=== PATIENT | female | born 1940 | race Caucasian/White ===

== ENCOUNTER → 2016-08-23 | Outpatient (CLI) | payer MEDICARE ==
--- NOTE | 2016-08-23 11:37 | REP ---
LUMBAR SPINE, FIVE VIEWS: HISTORY: Back pain. There is no acute fracture or subluxation. There is an old compression fracture of the L1 vertebral body with minimal height loss. The lumbar intervertebral discs are decreased in height consistent with disc degeneration. Osteophytes are present on L1 through L5. There is narrowing of the lumbar facet joints. There is scoliosis convex to the left. IMPRESSION: Degenerative change as described above. Signed by Duke Harris MD 08/23/2016 11:45 A
== END ==
LOC: M WUC 10:37
PROVIDERS: ATTEND Physician Assistant
DX: M51.36 Other intervertebral disc degeneration, lumbar region (principal); M54.5 Low back pain

== ENCOUNTER → 2020-08-02 | Outpatient (CLI) | payer MEDICARE ==
--- NOTE | 2020-08-02 10:46 | REP ---
INDICATION: PAIN. COMPARISON: Comparison left tib fib radiographs July 06, 2009.. TECHNIQUE: Standing AP view of both knees is acquired. Standing lateral view of the left knee and sunrise view of the left knee are also acquired. FINDINGS: There is advanced 3 compartment osteoarthritis of the left knee with medial joint space narrowing and patellofemoral joint space narrowing. There is medial compartment sclerosis and medial and patellofemoral compartment osteophyte formation is seen. Some lateral spurring is seen. There is diffuse osteopenia. The osteoarthritic changes are more pronounced than on the comparison the radiographs from 2009. IMPRESSION: Advanced osteoarthritis of the left knee. Standing view of the right knee demonstrates a right knee medial compartment hemiarthroplasty. <Electronically signed by Mann tSeel > 08/02/20 [id number]
== END ==
LOC: M SOG 10:13
PROVIDERS: ATTEND Orthopaedic Surgery Adult Reconstructive Orthopaedic Surgery
DX: M17.12 Unilateral primary osteoarthritis, left knee (principal)

== ENCOUNTER → 2020-10-02 | Outpatient (CLI) | payer MEDICARE | LOC: M PT 13:56 | PROVIDERS: ATTEND Orthopaedic Surgery Adult Reconstructive Orthopaedic Surgery | DX: M17.12 Unilateral primary osteoarthritis, left knee (principal) ==

== ENCOUNTER → 2020-10-17 | Outpatient (CLI) | payer MEDICARE ==
[~2020-10-17] MED LIST: ATOR40TA75 PO; D31000TA2 PO; ECOT81TA5 PO; LEVO25TA5 PO; MELO7.5T35; PANT40TA29 PO; POTA1TAB23 PO; TRIA37.53 PO
--- NOTE | 2020-10-17 12:18 | REP ---
INDICATION: LT KNEE OA. COMPARISON: Comparison radiographs of the left knee are from August 02, 2020. TECHNIQUE: Tera protocol. 3 mm axial images re-formatted. Coronal and sagittal MPR images are included at the hip, knee, and ankle. FINDINGS: Images at the level of the hip demonstrate a small bone island in the femoral head. There is tendon insertion site spurring on the greater trochanter. There is minimal marginal spur formation of the inferior aspect of the femoral head. Joint space is preserved. No bony destructive lesion is seen. At the knee, there is advanced medial compartment osteoarthritis with narrowing of the joint space, articular cartilage remodeling, and spur formation. There is well established spurring in the lateral compartment and chondrocalcinosis is noted in the lateral compartment. There is patellofemoral narrowing and spur formation as well. No significant joint effusion is seen. There is a 1 cm triangular ossific density in the extra-articular soft tissues beneath the lower pole of the patella. There is some vascular calcification. At the ankle, there is minimal tibiotalar spurring. Plantar calcaneal spurring is noted. There is mild midfoot intertarsal joint spurring. IMPRESSION: Osteoarthritic changes as above. <Electronically signed by Mann Steel > 10/17/20 [id number]
== END ==
LOC: M RAD 10:30
PROVIDERS: ATTEND Orthopaedic Surgery Adult Reconstructive Orthopaedic Surgery
DX: M17.12 Unilateral primary osteoarthritis, left knee (principal)

== ENCOUNTER → 2020-10-26 | Outpatient (CLI) | payer MEDICARE | LOC: M LABSMTC 09:10 | PROVIDERS: ATTEND Anesthesiology | DX: Z01.812 Encounter for preprocedural laboratory examination (principal); Z20.822 Contact with and (suspected) exposure to COVID-19 ==

== ENCOUNTER 2020-10-31 06:11 | Observation (INO) | payer MEDICARE ==
[~2020-10-31] VITALS: Ht 162.6 cm; Wt 68.0 kg
[~2020-10-31 06:11] MED LIST changes: +ACETAMINOPHEN 500 MG TAB PO ONE; +LR 1,000 ML IV ONE; +NAPROXEN 250 MG TAB PO ONE; +NS 1,000 ML IV ONE; +PREGABALIN 25 MG CAP (LYRICA) PO ONE; +ROPIVA 125MG/EPINEPH 0.25MG/CLONID 40MCG/KETOR 15MG IN NS 50ML SYRINGE PA ONE; +dexameTHASONE 4 MG/ML 1ML VIAL (J1100 PER 1MG) IV ONE
[2020-10-31] MEDS ORDERED: propofoL 500 MG/50 ML VIAL As Ordered ONE (07:04)
[2020-10-31] MEDS ORDERED: fentaNYL 100 MCG/2 ML INJECTION (J3010) As Ordered ONE (07:04)
[2020-10-31] MEDS ORDERED: ONDANSETRON 4MG/2ML VIAL As Ordered ONE (07:05)
[2020-10-31] MEDS ORDERED: MIDAZOLAM INJ 2MG/2ML VIAL (J2250 PER 1MG) As Ordered ONE (07:05)
[2020-10-31] MEDS ORDERED: TRANEXAMIC ACID 100 MG/ML 10ML VIAL As Ordered ONE (07:14)
[2020-10-31 08:03] LABS: HEMOGLOBIN 14.6 g/dl (12.0-15.5); MEAN CORPUSCULAR HEMOGLOBIN 30.1 pg (27.0-33.0); MEAN CORPUSCULAR VOLUME 88.7 fl (80.0-96.0); PLATELET COUNT, AUTOMATED 268 10^3/uL (150-450); RED BLOOD COUNT 4.85 10^6/uL (4.00-5.40); WHITE BLOOD COUNT 6.1 10^3/uL (4.0-10.0)
[2020-10-31] MEDS: ceFAZolin SOD 1 GM in D5W MINI-BAG PLUS 50 ML IV SCH ×3 (08:09→17:12)
[2020-10-31] MEDS ORDERED: LIDOCAINE 2% 100MG/5ML SDV (FOR ANES.) As Ordered ONE (08:11)
[2020-10-31] MEDS ORDERED: ePHEDrine SULFATE 25 MG/5 ML(5MG/ML) SYRINGE As Ordered ONE ×2 (08:16→08:31)
[2020-10-31 08:21] LABS: ALBUMIN 3.3 GM/DL (3.2-5.2); ALT/SGPT 49 U/L (12-78); BILIRUBIN,TOTAL 0.6 MG/DL (0.2-1.0); BLOOD UREA NITROGEN 24 MG/DL (7-18); CALCIUM LEVEL 9.5 MG/DL (8.8-10.2); CARBON DIOXIDE LEVEL 30 MEQ/L (21-32); CHLORIDE LEVEL 104 MEQ/L (98-107); CREATININE FOR GFR 0.84 MG/DL (0.55-1.30); GLOMERULAR FILTRATION RATE > 60.0 (>39); GLUCOSE, FASTING 128 MG/DL (70-100); SODIUM LEVEL 140 MEQ/L (136-145); TOTAL PROTEIN 7.2 GM/DL (6.4-8.2)
[2020-10-31] MEDS: FERROUS SULFATE 325MG TAB PO SCH (09:00)
[2020-10-31] MEDS: ASCORBIC ACID 500 MG TAB PO SCH (09:00)
[2020-10-31] MEDS: PANTOPRAZOLE 40MG TAB (PROTONIX) PO SCH (09:00)
[2020-10-31] MEDS: DOCUSATE SODIUM 100MG CAPSULE PO SCH ×2 (09:00→20:51)
[2020-10-31] MEDS: ASPIRIN 81MG ENTERIC TABLET PO SCH ×2 (09:00→20:51)
[2020-10-31] MEDS ORDERED: METOCLOPRAMIDE INJ 10MG/2ML VIAL (J2765 PER 1) IV PRN (10:50)
[2020-10-31] MEDS ORDERED: fentaNYL 100 MCG/2 ML INJECTION (J3010) IV PRN (10:50)
[2020-10-31] MEDS ORDERED: LR 1,000 ML IV SCH (10:50)
[2020-10-31] MEDS ORDERED: ONDANSETRON 4MG/2ML VIAL IV PRN ×2 (10:50→10:55)
[2020-10-31] MEDS ORDERED: PERCOCET 5MG/325MG TAB PO PRN (10:50)
--- NOTE | 2020-10-31 10:50 | ROOPDOC ---
[facility] Report Of Operation Report of Operation DATE OF PROCEDURE: 10/31/20 PREPROCEDURE DIAGNOSES: Left knee osteoarthritis POSTPROCEDURE DIAGNOSES: Left knee osteoarthritis; possible inflammatory arthropathy PROCEDURE PERFORMED: Left Tera total knee SURGEON: Jenn Vital MD PICTURE BOOKER: Bernarda Solo PA-C ANESTHESIA: Spinal. ESTIMATED BLOOD LOSS: Approximately less than 100 mL. COMPLICATIONS: No known complications. REMARKS: Patient was seen in the preoperative area and her left knee was marked. Consent was obtained for the Tera left total knee arthroplasty as well. Risks and benefits were discussed as previously described. Components: TeraView triathlon system press-fit 32 mm patella Size 3 tibia and size 3 femur PS 14 mm PS polyethylene FINDINGS: Tricompartmental osteoarthritis left knee; degenerative soft tissues as well with friability SPECIMENS REMOVED: None PROCEDURE NOTE: The patient was seen in the preoperative area and her status was updated. [facility] [employer] plan was reviewed prior to surgery and adjusted appropriately. DESCRIPTION OF PROCEDURE: Patient was taken to the operating room and after a checklist was performed, the underwent a spinal anesthetic. The patient was then placed supine. The operative leg was then cleansed with chlorhexidine wash followed by 2 times alcohol swab followed by hydrogen peroxide wash. 2 chlorhe xidine prep once were then used to clean the leg. The operative extremity was then prepped and draped in the standard sterile fashion. This was done utilizing the Tera leg hawley device. A surgical pause was then carried out followed by the surgical safety checklist. 2 stab hole incisions were made approximately 4 fingerbreadths below the tibial tubercle of the left knee for the tibial array pins which were placed. The midline incision over the knee followed by the medial arthrotomy was then carried out. Cautery was used to control bleeders. The soft tissue and fat pad were removed using electrocautery. The femoral array pins were then placed in the medial femoral condyle. The femoral tracker was then placed followed by the tibial tracker. The arrays were then placed over the array pins. The hip center was checked followed by the medial and lateral condyles of the ankle. The registration of the femur and tibia then occurred using the arrays in the Tera system. Osteophytes were removed at this point, as needed. The leg was then brought into extension and varus and valgus stresses were applied in extension and spoons were used for tensioning as well as a Beaver in flexion of approximately 95 degrees. Once the soft tissue adjustments were made to the Tera plan, the plan was carried out utilizing the robot. The 90 degree blade cuts were made first followed by the straight blade cuts. Once all the cuts were completed with the assistance of the Tera robot, the rongeur and osteotome were used to remove the bone segments. A lamina central office maintainer was used to help remove the medial lateral menisci remnants followed by a curved osteotome to remove any posterior osteophytes from the medial or lateral femoral condyles. A trial femur was placed and secured with a pin. The tibial component was then placed with a 11 mm polyinsert. This was brought into extension and found to have some slight laxity in flexion and extension. The decision was made to increase the polyethylene and as a result of the soft tissue laxity convert the femoral component to PS The the PS box cutting guide was applied and the lug holes were drilled as well as a sagittal saw and the osteotome blade were used to remove the box in the middle. The leg was then brought into extension and the patella was measured using the caliper. A freehand cut using towel clips was used to remove the patellar surface. This was then clamped and reamed appropriately for the press-fit components. A trial was placed and taken through range of motion and found to b e nice and stable. The tibia was then appropriately positioned with the correct amount of rotation lined up with the medial third of the tibial tubercle. This was pinned and the keel punch was completed followed by the four-point reaming for the press-fit component. The leg was brought out into extension and any bleeders were cauterized with electrocautery. The RE CK local anesthetic cocktail was instilled in the standard fashion. The wound was thoroughly irrigated with pulse lavage. The tibia was then press-fit in position using the mallet and impactors. The femur was then flexed high and positioned aligning the lug holes. This component was impacted then brought out into 90 degrees and impacted further to avoid anywhere to the metal components. The 11 mm polyethylene was increased to a 14 mm PS, which was inserted and then trialed, found appropriate and the final component was placed and impacted. The leg was brought into extension and the press-fit polyethylene patellar component was tightened and impacted utilizing the compression device The leg was taken through stable range of motion. It was thoroughly irrigated. Electrocautery was used to control any bleeders. A layered closure using #1 Vicryl followed by strata fix for the arthrotomy. #1 Vicryl to close down the subcutaneous tissue followed by running locking nylon suture full-thickness as a result of the patient's thin skin. Layered irrigation with saline and Betadine occurred. Steri-Strips were applied to the 2 sutured pin sites distally and this was followed by followed by the Mepilex dressing Patient tolerated the procedure well with no known complications. They were taken to the recovery room in stable condition. The patient will be admitted to the hospitalist service with plan for evaluation with physical therapy and possible discharge home tomorrow. Discharge Instructions Total Knee Arthroplasty 1. Pain: You may take oxycodone as prescribed for pain. Supplement with Naproxen and Tylenol as needed. Ice pack to operative hip as tolerated. 2. Wound care: Remove dressing on postop day 7. Call [phone] with any questions or concerns. Hygiene: The patient may shower. No tub baths. Check dressing seal prior to bathing. 3. Activity: WBAT left lower extremity. Front wheeled walker versus crutches for ambulation. Fall precautions. 4. Driving: No driving until cleared by your surgeon. Do not drive if taking n arcotic pain medications as these may make you drowsy. 5. DVT Prophylaxis: Continue taking aspirin 81 mg p.o. twice daily as prescribed for the prevention of blood clots. Ankle pumps every 1 hour while awake. SCARLETT hose at all times for 1 month after surgery. May remove for hygiene and wound care. 6. Placement: Plan is to discharge patient to home with home health including nursing and physical therapy. 7. Surgeon Follow-up: The patient is scheduled to be seen in Dr. Vital's office 2 weeks post op with xrays. 8. Primary care Follow-up: Please see your primary care provider in the next 2 to 5 weeks for general medical re-evaluation and medication review. 9. Labs: CBC without differential and BMP to be drawn on [postop day 3] with results to PCP and please fax to [phone]. 10. Please contact [facility] if you have any questions or concerns at [phone]. JENN VITAL MD Oct 31, 2020 10:50
[2020-10-31] MEDS: LR 1,000 ML IV SCH ×2 (10:55→20:55)
[2020-10-31] MEDS ORDERED: SENNA 8.6 MG TAB (SENOKOT) PO PRN (10:55)
[2020-10-31] MEDS ORDERED: oxyCODONE 5MG TAB PO PRN (10:55)
[2020-10-31] MEDS ORDERED: traMADol 50 MG TAB PO PRN (10:55)
--- NOTE | 2020-10-31 11:38 | REP ---
INDICATION: POST OP IN PACU COMPARISON: 08/02/2020. TECHNIQUE: AP and lateral. FINDINGS: Patient is status post total knee arthroplasty. Osseous structures are well-aligned. Postsurgical air is seen anteriorly in the soft tissues. IMPRESSION: Total knee arthroplasty appears to be in good position. <Electronically signed by Fabien Lechuga > 10/31/20 [id number]
--- NOTE | 2020-10-31 11:54 | HPEPDOC ---
General Date of Admission 10/31/20 Date of Service: Oct 31, 2020 Chief Complaint The patient is a 79-year-old female admitted with a reason for visit of Left Knee Osteoarthritis. Source: Patient History of Present Illness 79-year-old female with past medical history of hypertension, hyperlipidemia, Mnire's disease, advanced osteoarthritis of the left knee, was admitted for left total knee replacement. Am seeing the patient after surgery in the PACU. Patient complains of sharp throbbing pain at the surgical site of the left knee 3/10 in intensity no radiation. Patient denies any other complaints Home Medications Scheduled Aspirin (Ecotrin) 81 Mg Tablet.dr, 81 MG PO DAILY, (Reported) Atorvastatin Calcium (Atorvastatin Calcium) 40 Mg Tablet, 40 MG PO QHS, (Reported) Cholecalciferol (Vitamin D3) (Vitamin D3) 1,000 Unit Tablet, 1,000 UNITS PO DAILY, (Reported) Levothyroxine Sodium (Levothyroxine Sodium) 25 Mcg Tablet, 25 MCG PO DAILY, (Reported) Pantoprazole Sodium (Pantoprazole Sodium) 40 Mg Tablet.dr, 40 MG PO DAILY, (Reported) Potassium Chloride (Potassium Chloride) 10 Meq Tablet.er, 10 MEQ PO DAILY, (Reported) Triamterene/Hydrochlorothiazid (Triamterene-Hctz 37.5-25 mg Cp) 1 Each Capsule, 1 TAB PO DAILY, (Reported) Allergies Coded Allergies: No Known Allergies (Unverified , 10/31/20) Past Medical History Medical History Hypertension Mnire's disease, hyperlipidemia, osteoarthritis Surgical History Hysterectomy, right knee arthroscopy, left breast biopsy, bunionectomy. Family History Significant Family History: Heart disease, Hypertension Social History * Smoker: former Smoker (Quit 15 years ago) Alcohol: Denies Drugs: denies A-FIB/CHADSVASC A-FIB History Current/History of A-Fib/PAF?: No Review of Systems Constitutional: Denies: Chills, Fever, Night Sweats Eyes: Denies: Pain, Vision change ENT: Denies: Head Aches, Ear Pain, Dysphagia Skin: Denies: Rash, Lesions, Breakdown Pulmonary: Denies: Dyspnea, Cough Cardiovascular: Denies: Chest Pain, Palpitations, Orthopnea, Paroxysmal Noc. Dyspnea, Lt Headedness Gastrointestinal: Denies: Nausea, Vomiting, Abdominal Pain, Diarrhea Genitourinary: Denies: Dysuria, Frequency, Incontinence, Retention Hematologic: Denies: Bruising, Bleeding Excessively Musculoskeletal: Reports: Joint Pain (Left knee); Denies: Neck Pain, Back Pain, Muscle Pain, Spasms Physical Examination General Exam: Positive: Alert, Cooperative, No Acute Distress Eye Exam: Positive: PERRLA, Conjunctiva & lids normal, EOMI; Negative: Sclera icteric ENT Exam: Positive: Atraumatic, Mucous membr. moist/pink, Pharynx Normal Neck Exam: Positive: Supple; Negative: JVD, thyromegaly Chest Exam: Positive: Clear to auscultation, Normal air movement Heart Exam: Positive: Rate Normal, Regular Rhythm, Normal S1, Normal S2, Murmurs (Soft systolic murmur at the base of the heart); Negative: Rubs Abdomen Exam: Positive: Normal bowel sounds, Soft; Negative: Tenderness Extremity Exam: Negative: Clubbing, Cyanosis, Edema Skin Exam: Positive: Nl turgor and temperature; Negative: Breakdown, Lesion Psych Exam: Positive: Memory Intact, Oriented x 3 Vital Signs Vital Signs Date Time Temp Pulse Resp B/P (MAP) Pulse Ox O2 Delivery O2 Flow Rate FiO2 10/31/20 11:38 98.5 66 18 153/76 (101) 94 10/31/20 11:26 Room Air Laboratory Data Labs 24H Laboratory Tests 2 10/31/20 07:36: Nucleated Red Blood Cells % (auto) 0.0, Anion Gap 6L, Glomerular Filtration Rate > 60.0, Calcium Level 9.5, Total Bilirubin 0.6, Aspartate Amino Transf (AST/SGOT) 29, Alanine Aminotransferase (ALT/SGPT) 49, Alkaline Phosphatase 114, Total Protein 7.2, Albumin 3.3, Albumin/Globulin Ratio 0.8L CBC/BMP Laboratory Tests 10/31/20 07:36 Assessment/Plan 79-year-old female with past medical history of hypertension, hyperlipidemia, Mnire's disease, advanced osteoarthritis of the left knee, was admitted for left total knee replacement. Left knee osteoarthritis Status post left total knee replacement on 10/31/2020 Pain control as per Ortho DVT prophylaxis as per Ortho to continue aspirin 81 mg twice daily PT, OT Weightbearing as per Ortho Hypertension Blood pressure controlled at present We will hold diuretics for now Mnire's disease No issues at this time Patient tells me she takes the diuretics also for her Mnire's disease will resume tomorrow Hyperlipidemia Continue statin Plan / VTE VTE Prophylaxis Ordered?: Yes Windy Tiwari MD Oct 31, 2020 11:54
[2020-10-31] MEDS: ACETAMINOPHEN TAB 650MG DOSE (2X325MG) PO SCH ×2 (12:00→17:12)
[2020-10-31] MEDS: NAPROXEN 250 MG TAB PO SCH (12:00)
[2020-10-31 12:15] VITALS: BP 142/84
[2020-10-31 12:45] VITALS: BP 142/83
[2020-10-31 14:00] VITALS: BP 122/72
[2020-10-31 15:00] VITALS: BP 117/69
[2020-10-31] MEDS: oxyCODONE 5MG TAB PO PRN ×2 (15:58→21:11)
[2020-10-31 16:00] VITALS: BP 117/86
[2020-10-31 17:00] VITALS: BP 122/80
[2020-10-31] MEDS ORDERED: ATORVASTATIN 20 MG TAB PO SCH (21:00)
[2020-11-01] MEDS: ACETAMINOPHEN TAB 650MG DOSE (2X325MG) PO SCH ×2 (00:37→05:53)
[2020-11-01] MEDS: NAPROXEN 250 MG TAB PO SCH (00:37)
[2020-11-01] MEDS: ceFAZolin SOD 1 GM in D5W MINI-BAG PLUS 50 ML IV SCH ×2 (00:37→00:38)
[2020-11-01 02:00] VITALS: BP 114/59
[2020-11-01 06:00] VITALS: BP 109/51
[2020-11-01] MEDS ORDERED: LEVOTHYROXINE 25MCG TABLET (0.025MG) PO SCH (06:00)
[2020-11-01 06:10] LABS: HEMATOCRIT 36.1 % (36.0-47.0); MEAN CORPUSCULAR HEMOGLOBIN 29.7 pg (27.0-33.0); MEAN CORPUSCULAR HGB CONC 33.5 g/dl (32.0-36.5); MEAN CORPUSCULAR VOLUME 88.5 fl (80.0-96.0); PLATELET COUNT, AUTOMATED 260 10^3/uL (150-450); RED BLOOD COUNT 4.08 10^6/uL (4.00-5.40); WHITE BLOOD COUNT 12.5 10^3/uL (4.0-10.0)
[2020-11-01 06:19] LABS: HEMOGLOBIN 12.1 g/dl (12.0-15.5)
[2020-11-01 06:33] LABS: BLOOD UREA NITROGEN 22 MG/DL (7-18); CALCIUM LEVEL 8.8 MG/DL (8.8-10.2); CARBON DIOXIDE LEVEL 28 MEQ/L (21-32); CHLORIDE LEVEL 107 MEQ/L (98-107); CREATININE FOR GFR 0.83 MG/DL (0.55-1.30); GLOMERULAR FILTRATION RATE > 60.0 (>39); GLUCOSE, FASTING 149 MG/DL (70-100); POTASSIUM SERUM 3.4 MEQ/L (3.5-5.1); SODIUM LEVEL 143 MEQ/L (136-145)
[2020-11-01] MEDS ORDERED: POTASSIUM CHLORIDE 10MEQ SR TABLET PO ONE (08:00)
--- NOTE | 2020-11-01 08:08 | IPNPDOC ---
Text Note Date of Service The patient was seen on 11/01/20. NOTE Postop day 1 for left total knee arthroplasty Patient doing well. Denies any significant complaints or concerns. She has no pain at rest. She does have weightbearing pain which is normal. She denies any chest pain or shortness of breath. She states that she did not get a lot of sleep last night due to noises from the hospital, etc. She is hoping to get home today Bulky dressing was intact to left lower extremity. This was removed. No staining noted to the Mepilex dressing. This appeared to be intact with no loss of seal. Patient demonstrated that she could elevate her leg off the bed about 30 degrees or so. She was able to bend her knee about 35 degrees with no pain or discomfort. Grossly neurovascularly intact to left foot and ankle with a palpable posterior tibial pulse intact light sensation. Moving left foot and ankle well X-ray imaging in PACU that was ordered independently and reviewed by myself yesterday demonstrated that the prosthesis was in good position without any obvious signs of complication. Plan for DC home when cleared by hospitalist service and physical therapy, possibly today Discharge Instructions Total Knee Arthroplasty 1. Pain: You may take oxycodone as prescribed for pain. Supplement with Naproxen and Tylenol as needed. Ice pack to operative knee as tolerated. 2. Wound care: Remove dressing on postop day 7. Call [phone] with any questions or concerns. Hygiene: The patient may shower. No tub baths. Check óscar ssing seal prior to bathing. 3. Activity: WBAT left lower extremity. Front wheeled walker versus crutches for ambulation. Fall precautions. 4. Driving: No driving until cleared by your surgeon. Do not drive if taking narcotic pain medications as these may make you drowsy. 5. DVT Prophylaxis: Continue taking aspirin 81 mg p.o. twice daily as prescribed for the prevention of blood clots. Ankle pumps every 1 hour while awake. SCARLETT hose at all times for 1 month after surgery. May remove for hygiene and wound care. 6. Placement: Plan is to discharge patient to home with home health including nursing and physical therapy. 7. Surgeon Follow-up: The patient is scheduled to be seen in Dr. Vital's office 2 weeks post op with xrays. 8. Primary care Follow-up: Please see your primary care provider in the next 2 to 5 weeks for general medical re-evaluation and medication review. 9. Labs: CBC without differential to be drawn on postop day 3 with results to PCP and please fax to [phone]. 10. Please contact [facility] if you have any questions or concerns at [phone]. VS,Fishbone, I+O VS, Fishbone, I+O Laboratory Tests 11/01/20 05:51 Vital Signs Date Time Temp Pulse Resp B/P (MAP) Pulse Ox O2 Delivery O2 Flow Rate FiO2 11/01/20 06:00 98.7 52 17 109/51 (70) 95 Nasal Cannula 2.0 I&O- Last 24 Hours up to 6 AM 11/01/20 06:00 Intake Total 2710 ml Output Total 100 ml Balance 2610 ml JENN VITAL MD Nov 01, 2020 08:08
[2020-11-01] MEDS: oxyCODONE 5MG TAB PO PRN (08:44)
[2020-11-01] MEDS: FERROUS SULFATE 325MG TAB PO SCH (08:45)
[2020-11-01] MEDS: ASCORBIC ACID 500 MG TAB PO SCH (08:45)
[2020-11-01] MEDS: DOCUSATE SODIUM 100MG CAPSULE PO SCH (08:45)
[2020-11-01] MEDS: PANTOPRAZOLE 40MG TAB (PROTONIX) PO SCH (08:45)
[2020-11-01] MEDS: ASPIRIN 81MG ENTERIC TABLET PO SCH (08:45)
[2020-11-01 10:00] VITALS: BP 122/69
[2020-11-01] MEDS ORDERED: ECOT81TA5 PO (11:04)
[2020-11-01] MEDS ORDERED: ASCO50TA PO (11:04)
[2020-11-01] MEDS ORDERED: FERR1TAB8 PO (11:04)
[2020-11-01] MEDS ORDERED: DOCU100C16 PO (11:04)
[2020-11-01] MEDS ORDERED: OXYC-517 PO ×2 (11:04→11:07)
[2020-11-01] MEDS ORDERED: ACET1TAB55 PO (11:04)
--- NOTE | 2020-11-01 11:12 | DS.PDOC ---
Discharge Summary General Date of Admission 10/31/20 Date of Discharge 11/01/20 Discharge Summary PROCEDURES PERFORMED DURING STAY: [None]. DISCHARGE DIAGNOSES: Left total knee arthroplasty COMPLICATIONS/CHIEF COMPLAINT: Left Knee Osteoarthritis. HOSPITAL COURSE: 79-year-old female with past medical history of hypertension, hyperlipidemia, Mnire's disease, advanced osteoarthritis of the left knee, was admitted for left total knee replacement. Left knee osteoarthritis Status post left total knee replacement on 10/31/2020 Pain control with Tylenol, naproxen, oxycodone DVT prophylaxis as per Ortho to continue aspirin 81 mg twice daily PT, OT Weightbearing on left leg as tolerated Hypertension Continue home med Mnire's disease No issues at this time Patient tells me she takes the diuretics also for her Mnire's disease will resume tomorrow Hyperlipidemia Continue statin DISCHARGE MEDICATIONS: Please see below. ALLERGIES: Please see below. PHYSICAL EXAMINATION ON DISCHARGE: VITAL SIGNS: Please see below. General Exam: Positive: Alert, Cooperative, No Acute Distress Eye Exam: Positive: PERRLA, Conjunctiva & lids normal, EOMI; Negative: Sclera icteric ENT Exam: Positive: Atraumatic, Mucous membr. moist/pink, Pharynx Normal Neck Exam: Positive: Supple; Negative: JVD, thyromegaly Chest Exam: Positive: Clear to auscultation, Normal air movement Heart Exam: Positive: Rate Normal, Regular Rhythm, Normal S1, Normal S2, Murmurs (Soft systolic murmur at the base of the heart); Negative: Rubs Abdomen Exam: Positive: Normal bowel sounds, Soft; Negative: Tenderness Extremity Exam: Negative: Clubbing, Cyanosis, Edema Skin Exam: Positive: Nl turgor and temperature; Negative: Breakdown, Lesion Psych Exam: Positive: Memory Intact, Oriented x 3 LABORATORY DATA: Please see below. ACTIVITY: [As tolerated]. DIET: As tolerated DISCHARGE PLAN: Home with services DISCHARGE INSTRUCTIONS: Follow-up with [facility] orth[facility] clinic in 2 weeks PMD in 4 weeks Follow the orthopedic discharge instructions DISCHARGE CONDITION: [Stable]. TIME SPENT ON DISCHARGE: 35 minutes. Vital Signs/I&Os Vital Signs Date Time Temp Pulse Resp B/P (MAP) Pulse Ox O2 Delivery O2 Flow Rate FiO2 11/01/20 10:00 98.0 53 18 122/69 (86) 93 Room Air 11/01/20 06:00 2.0 I&O- Last 24 Hours up to 6 AM 11/01/20 06:00 Intake Total 2710 ml Output Total 100 ml Balance 2610 ml Laboratory Data Labs 24H Laboratory Tests 2 11/01/20 05:51: Nucleated Red Blood Cells % (auto) 0.0, Anion Gap 8, Glomerular Filtration Rate > 60.0, Calcium Level 8.8 CBC/BMP Laboratory Tests 11/01/20 05:51 Discharge Medications Scheduled Ascorbic Acid (Vitamin C) 500 Mg Tablet, 500 MG PO DAILY Aspirin (Ecotrin) 81 Mg Tablet.dr, 81 MG PO BID Atorvastatin Calcium (Atorvastatin Calcium) 40 Mg Tablet, 40 MG PO QHS, (Reported) Cholecalciferol (Vitamin D3) (Vitamin D3) 1,000 Unit Tablet, 1,000 UNITS PO DAILY, (Reported) Docusate Sodium (Docusate Sodium) 100 Mg Capsule, 100 MG PO BID Ferrous Sulfate (Ferrous Sulfate) 325 Mg Tablet, 325 MG PO DAILY Levothyroxine Sodium (Levothyroxine Sodium) 25 Mcg Tablet, 25 MCG PO DAILY, (Reported) Pantoprazole Sodium (Pantoprazole Sodium) 40 Mg Tablet.dr, 40 MG PO DAILY, (Reported) Potassium Chloride (Potassium Chloride) 10 Meq Tablet.er, 10 MEQ PO DAILY, (Reported) Triamterene/Hydrochlorothiazid (Triamterene-Hctz 37.5-25 mg Cp) 1 Each Capsule, 1 TAB PO DAILY, (Reported) Scheduled PRN Acetaminophen (Acetaminophen) 325 Mg Tablet, 650 MG PO Q6HP PRN for PAIN LEVEL 1-4 Oxycodone HCl (Oxycodone HCl) 5 Mg Tablet, 1-2 TAB PO Q6HP PRN for pain Allergies Coded Allergies: No Known Allergies (Unverified , 10/31/20) Windy Tiwari MD Nov 01, 2020 11:12
== END 2020-11-01 12:45 | disposition home or self-care (01) ==
LOC: M SDC 06:11 → M MS5PR 06:12
PROVIDERS: ADMIT Internal Medicine Nephrology; ATTEND Orthopaedic Surgery Adult Reconstructive Orthopaedic Surgery
DX: M17.12 Unilateral primary osteoarthritis, left knee (principal); I10 Essential (primary) hypertension; E78.5 Hyperlipidemia, unspecified; H81.09 Meniere's disease, unspecified ear; Z79.82 Long term (current) use of aspirin; Z79.899 Other long term (current) drug therapy; Z87.891 Personal history of nicotine dependence
CPT/HCPCS: 27447; 36415; 73560; 80048; 80053; 85027; 88304; 88311; 96365; 96366; 97161; 97165; 97530; 97535; C1776; G0378; J0690; J1100; J2250; J2405; J3010

== ENCOUNTER → 2020-11-13 | Outpatient (CLI) | payer MEDICARE ==
[~2020-11-13] MED LIST changes: +ACET1TAB55 PO; -ACETAMINOPHEN 500 MG TAB PO ONE; +ASCO50TA PO; +DOCU100C16 PO; +FERR1TAB8 PO; -LR 1,000 ML IV ONE; -NAPROXEN 250 MG TAB PO ONE; -NS 1,000 ML IV ONE; +OXYC-517 PO; -PREGABALIN 25 MG CAP (LYRICA) PO ONE; -ROPIVA 125MG/EPINEPH 0.25MG/CLONID 40MCG/KETOR 15MG IN NS 50ML SYRINGE PA ONE; -dexameTHASONE 4 MG/ML 1ML VIAL (J1100 PER 1MG) IV ONE
--- NOTE | 2020-11-13 10:37 | REP ---
INDICATION: LT ARTIFICAL KNEE. COMPARISON: 10/31/2020 TECHNIQUE: AP, lateral, sunrise views of the left knee FINDINGS: Patient is again noted to be status post left knee arthroplasty with decreased improving postsurgical changes. Orthopedic hardware and osseous structures are stable and grossly normal. IMPRESSION: Decreasing/improving postsurgical changes. <Electronically signed by Florentin Lund > 11/13/20 1035
== END ==
LOC: M SOG 08:32
PROVIDERS: ATTEND Orthopaedic Surgery Adult Reconstructive Orthopaedic Surgery
DX: Z96.652 Presence of left artificial knee joint (principal)

== ENCOUNTER 2020-12-07 12:45 | Outpatient (RCR) | payer MEDICARE | END 2020-12-10 | LOC: M PT 12:45 | PROVIDERS: ATTEND Orthopaedic Surgery Adult Reconstructive Orthopaedic Surgery | DX: Z47.89 Encounter for other orthopedic aftercare (principal); Z96.652 Presence of left artificial knee joint ==

== ENCOUNTER 2020-12-21 12:46 | Outpatient (RCR) | payer MEDICARE | END 2021-01-09 | LOC: M PT 12:46 | PROVIDERS: ATTEND Orthopaedic Surgery Adult Reconstructive Orthopaedic Surgery | DX: Z47.89 Encounter for other orthopedic aftercare (principal); Z96.652 Presence of left artificial knee joint ==

== ENCOUNTER → 2021-10-31 | Outpatient (CLI) | payer MEDICARE ==
[~2021-10-31] MED LIST changes: -D31000TA2 PO; -TRIA37.53 PO; +TRIA37.577 PO; +VITA100093 PO
== END ==
LOC: M SOG 08:00
PROVIDERS: ATTEND Orthopaedic Surgery Adult Reconstructive Orthopaedic Surgery
DX: Z96.652 Presence of left artificial knee joint (principal)

== ENCOUNTER → 2021-12-20 | Outpatient (CLI) | payer MEDICARE | LOC: M WHC 09:24 | PROVIDERS: ATTEND Internal Medicine | DX: R74.01 Elevation of levels of liver transaminase levels (principal); K80.20 Calculus of gallbladder without cholecystitis without obstruction ==

== ENCOUNTER → 2022-01-30 | Outpatient (REF) | payer MEDICARE ==
[2022-01-30 17:59] LABS: FERRITIN 23.9 NG/ML (7.3-270.7)
[2022-01-30 18:12] LABS: HEPATITIS B SURFACE ANTIGEN NEGATIVE (NEGATIVE)
[2022-01-30 18:30] LABS: HEPATITIS C VIRUS ABY INDEX 0.1 INDEX (<0.8)
[2022-01-30 18:31] LABS: HEPATITIS B CORE ANTIBODY IGM NEGATIVE (NEGATIVE)
[2022-02-01 15:08] LABS: ANTI-MITOCHONDRIAL ANTIBODY <20.0 Units (0.0-20.0)
== END ==
LOC: M LAB REF 16:21
PROVIDERS: ATTEND Internal Medicine
DX: R74.01 Elevation of levels of liver transaminase levels (principal)

== ENCOUNTER 2022-02-13 16:16 | Observation (INO) | payer MEDICARE ==
[~2022-02-13] VITALS: Ht 157.5 cm; Wt 67.6 kg
[2022-02-13 16:50] LABS: BASO # 0.1 10^3/uL (0.0-0.2); BASO % 0.8 % (0.0-1.0); EOS # 0.1 10^3/uL (0.0-0.5); EOS % 1.1 % (0.0-3.0); HEMATOCRIT 44.8 % (36.0-47.0); HEMOGLOBIN 14.3 g/dl (12.0-15.5); LYMPH # 1.8 10^3/uL (1.5-5.0); MEAN CORPUSCULAR HEMOGLOBIN 28.4 pg (27.0-33.0); MEAN CORPUSCULAR HGB CONC 31.9 g/dl (32.0-36.5); MEAN CORPUSCULAR VOLUME 89.1 fl (80.0-96.0); MONO # 0.8 10^3/uL (0.0-0.8); MONO % 11.3 % (2.0-8.0); NEUTROPHILS # 4.4 10^3/uL (1.5-8.5); NEUTROPHILS % 61.7 % (36.0-66.0); PLATELET COUNT, AUTOMATED 261 10^3/uL (150-450); RED BLOOD COUNT 5.03 10^6/uL (4.00-5.40); WHITE BLOOD COUNT 7.1 10^3/uL (4.0-10.0)
[2022-02-13 17:12] LABS: ALBUMIN 3.4 G/DL (3.2-5.2); ALKALINE PHOSPHATASE 138 U/L (46-116); ALT/SGPT 151 U/L (7.0-40); AST/SGOT 125 U/L (<34); BILIRUBIN,TOTAL 0.6 MG/DL (0.3-1.2); BLOOD UREA NITROGEN 20 MG/DL (9-23); CALCIUM LEVEL 9.5 MG/DL (8.3-10.6); CARBON DIOXIDE LEVEL 25 MMOL/L (20-31); CHLORIDE LEVEL 103 MMOL/L (98-107); CREATININE FOR GFR 0.62 MG/DL (0.55-1.30); GLOMERULAR FILTRATION RATE > 60.0 (>32); GLUCOSE, FASTING 93 MG/DL (74-106); POTASSIUM SERUM 4.6 MMOL/L (3.5-5.1); SODIUM LEVEL 138 MMOL/L (136-145); TOTAL PROTEIN 7.4 G/DL (5.7-8.2)
[2022-02-13] MEDS: hydrALAZINE 20MG/ML 1ML VIAL IV PRN ×2 (17:53→18:22)
[2022-02-13 18:22] VITALS: BP 206/93
[2022-02-13] MEDS: hydroCHLOROthiazide 12.5 MG CAPSULE PO SCH (20:05)
[2022-02-13] MEDS ORDERED: **hydrALAZINE** 10 MG TAB PO PRN ×2 (20:05→21:10)
[2022-02-13] MEDS ORDERED: ACETAMINOPHEN TAB 650MG DOSE (2X325MG) PO PRN (20:45)
[2022-02-13] MEDS ORDERED: ALBUTEROL 90 MCG/ACT 8GM HFA INHALER INH PRN (20:50)
[2022-02-13] MEDS ORDERED: ECOT81TA5 PO (20:56)
[2022-02-13] MEDS ORDERED: ACET-897 PO (20:56)
[2022-02-13] MEDS ORDERED: ALBU8.5H INH (20:57)
[2022-02-13] MEDS ORDERED: SYMB16INH INH (20:57)
[2022-02-13] MEDS ORDERED: HOME MED LIST COMPLETE! XX SCH (21:00)
[2022-02-13 21:04] LABS: RSV AMPLIFICATION NEGATIVE (NEGATIVE)
[2022-02-13 23:39] VITALS: BP 162/101
[2022-02-14 00:15] VITALS: BP 119/71
[2022-02-14 05:44] VITALS: BP 128/72
[2022-02-14] MEDS ORDERED: LEVOTHYROXINE 25MCG TABLET (0.025MG) PO SCH (06:00)
[2022-02-14 06:30] LABS: ALBUMIN 3.3 G/DL (3.2-5.2); ALKALINE PHOSPHATASE 124 U/L (46-116); ALT/SGPT 116 U/L (7.0-40); AST/SGOT 70 U/L (<34); BILIRUBIN,TOTAL 0.7 MG/DL (0.3-1.2); BLOOD UREA NITROGEN 23 MG/DL (9-23); CALCIUM LEVEL 9.5 MG/DL (8.3-10.6); CARBON DIOXIDE LEVEL 24 MMOL/L (20-31); CHLORIDE LEVEL 104 MMOL/L (98-107); CREATININE FOR GFR 0.64 MG/DL (0.55-1.30); GLOMERULAR FILTRATION RATE > 60.0 (>32); GLUCOSE, FASTING 121 MG/DL (74-106); POTASSIUM SERUM 3.5 MMOL/L (3.5-5.1); SODIUM LEVEL 140 MMOL/L (136-145); TOTAL PROTEIN 6.4 G/DL (5.7-8.2)
[2022-02-14 07:30] VITALS: BP 147/75
[2022-02-14 08:00] VITALS: BP 142/76
[2022-02-14] MEDS ORDERED: SYMBICORT 160/4.5MCG INHALER 6GM INH SCH (08:00)
[2022-02-14] MEDS: hydroCHLOROthiazide 12.5 MG CAPSULE PO SCH (08:29)
[2022-02-14] MEDS ORDERED: VITAMIN D 1,000 INTERNATIONAL UNITS TABLET PO SCH (09:00)
[2022-02-14] MEDS ORDERED: ASPIRIN 81MG ENTERIC TABLET PO SCH (09:00)
[2022-02-14] MEDS ORDERED: PANTOPRAZOLE 40MG TAB (PROTONIX) PO SCH (09:00)
[2022-02-14] MEDS ORDERED: HYDR12CA PO (10:25)
== END 2022-02-14 11:48 | disposition home or self-care (01) ==
LOC: EDBD 16:16 → M ED 16:44 → M ED INP 20:26 → ENRESERV 23:11 → M MSPAV 02-14 00:03
PROVIDERS: ADMIT Family Medicine; ATTEND Family Medicine
DX: I16.9 Hypertensive crisis, unspecified (principal); R51.9 Headache, unspecified; H81.09 Meniere's disease, unspecified ear; E03.9 Hypothyroidism, unspecified; E78.00 Pure hypercholesterolemia, unspecified; J44.9 Chronic obstructive pulmonary disease, unspecified; K21.9 Gastro-esophageal reflux disease without esophagitis; E55.9 Vitamin D deficiency, unspecified; Z79.899 Other long term (current) drug therapy; Z79.82 Long term (current) use of aspirin; Z79.51 Long term (current) use of inhaled steroids; Z79.890 Hormone replacement therapy
CPT/HCPCS: 36415; 70450; 71045; 80053; 85025; 87631; 93005; 93041; 94640; 94760; 96374; 99285; G0378

== ENCOUNTER → 2022-03-28 | Outpatient (CLI) | payer MEDICARE ==
[~2022-03-28] MED LIST changes: +ACET-897 PO; +ALBU8.5H INH; +GASTROGRAFIN SOLUTION 30ML As Ordered ONE; +HYDR12CA PO; +ISOVUE-370 76% 100ML VIAL As Ordered ONE; +SYMB16INH INH
== END ==
LOC: M RAD 08:16
PROVIDERS: ATTEND Internal Medicine
DX: K80.80 Other cholelithiasis without obstruction (principal); I51.7 Cardiomegaly; K86.89 Other specified diseases of pancreas; N28.89 Other specified disorders of kidney and ureter; M41.86 Other forms of scoliosis, lumbar region; K57.30 Diverticulosis of large intestine without perforation or abscess without bleeding
CPT/HCPCS: 74178; Q9963; Q9967

== ENCOUNTER → 2022-04-01 | Outpatient (CLI) | payer MEDICARE ==
[~2022-04-01] MED LIST changes: -GASTROGRAFIN SOLUTION 30ML As Ordered ONE; -ISOVUE-370 76% 100ML VIAL As Ordered ONE
== END ==
LOC: M RAD 08:37
PROVIDERS: ATTEND Internal Medicine
DX: I11.9 Hypertensive heart disease without heart failure (principal)

== ENCOUNTER → 2022-05-06 | Outpatient (CLI) | payer MEDICARE ==
[~2022-05-06] MED LIST changes: +AMLO1TAB25 PO; +OLME20TA2 PO; +SPIR-10 PO
== END ==
LOC: M LABSMTC 10:58
PROVIDERS: ATTEND Anesthesiology
DX: Z01.818 Encounter for other preprocedural examination (principal); Z11.52 Encounter for screening for COVID-19

== ENCOUNTER 2022-05-10 07:17 | Day surgery (SDC) | payer MEDICARE ==
[~2022-05-10] VITALS: Ht 162.6 cm; Wt 67.1 kg
[2022-05-10 07:58] LABS: HEMATOCRIT 43.1 % (36.0-47.0); MEAN CORPUSCULAR HEMOGLOBIN 28.9 pg (27.0-33.0); MEAN CORPUSCULAR HGB CONC 32.5 g/dl (32.0-36.5); MEAN CORPUSCULAR VOLUME 88.9 fl (80.0-96.0); PLATELET COUNT, AUTOMATED 307 10^3/uL (150-450); RED BLOOD COUNT 4.85 10^6/uL (4.00-5.40)
[2022-05-10] MEDS ORDERED: LR 1,000 ML IV SCH ×2 (08:00→12:00)
[2022-05-10] MEDS ORDERED: KETOROLAC 60MG 2ML VIAL As Ordered ONE (08:06)
[2022-05-10] MEDS ORDERED: propofoL 200 MG/20 ML VIAL As Ordered ONE (08:06)
[2022-05-10] MEDS ORDERED: SUGAMMADEX SODIUM 500 MG/5 ML VIAL (BRIDION) As Ordered ONE (08:06)
[2022-05-10] MEDS ORDERED: ONDANSETRON 4MG 2ML VIAL As Ordered ONE (08:06)
[2022-05-10] MEDS ORDERED: LIDOCAINE 2% 100MG/5ML SDV (FOR ANES.) As Ordered ONE (08:06)
[2022-05-10] MEDS ORDERED: ROCURONIUM BROMIDE 50MG/5ML VIAL As Ordered ONE (08:06)
[2022-05-10] MEDS ORDERED: fentaNYL 100 MCG/2 ML INJECTION As Ordered ONE (08:27)
[2022-05-10] MEDS ORDERED: ceFAZolin SOD 2 GM in IV 1 EA IV ONE (09:20)
[2022-05-10] MEDS ORDERED: BUPIVACAINE/EPIN 0.25% 30ML VIAL As Ordered ONE (09:21)
[2022-05-10] MEDS ORDERED: ACETAMINOPHEN 1000MG 100ML IV BAG As Ordered ONE (09:42)
[2022-05-10] MEDS ORDERED: GLYCOPYRROLATE INJ 0.2 MG/ML 2 ML VIAL As Ordered ONE (09:58)
[2022-05-10] MEDS ORDERED: fentaNYL 100 MCG/2 ML INJECTION IV PRN (11:00)
[2022-05-10] MEDS ORDERED: MORPHINE 2 MG/ML 1ML VIAL IV PRN (11:00)
[2022-05-10] MEDS ORDERED: ONDANSETRON 4MG 2ML VIAL IV PRN (11:00)
[2022-05-10] MEDS ORDERED: oxyCODONE 5MG TAB PO PRN (11:00)
[2022-05-10] MEDS ORDERED: PERCOCET 5MG/325MG TAB PO PRN (12:00)
[2022-05-10 13:10] VITALS: BP 160/85
== END 2022-05-10 13:16 | disposition home or self-care (01) ==
LOC: M SDC 07:17
PROVIDERS: ATTEND Specialist
DX: N81.10 Cystocele, unspecified (principal); I10 Essential (primary) hypertension; K44.9 Diaphragmatic hernia without obstruction or gangrene; J44.9 Chronic obstructive pulmonary disease, unspecified; K21.9 Gastro-esophageal reflux disease without esophagitis; Z79.51 Long term (current) use of inhaled steroids; Z79.899 Other long term (current) drug therapy; Z87.891 Personal history of nicotine dependence; E03.9 Hypothyroidism, unspecified; E78.5 Hyperlipidemia, unspecified
CPT/HCPCS: 36415; 57240; 85027; 88302; J0131; J0690; J1100; J1885; J2405; J3010

== ENCOUNTER 2022-06-20 09:18 | Day surgery (SDC) | payer MEDICARE ==
[~2022-06-20] VITALS: Ht 157.5 cm; Wt 65.8 kg
[~2022-06-20 09:18] MED LIST changes: +FAMO20TA PO; +NS 1,000 ML IV ONE
[2022-06-20] MEDS ORDERED: LIDOCAINE 2% 100MG/5ML SDV (FOR ANES.) As Ordered ONE (10:28)
[2022-06-20] MEDS ORDERED: propofoL 200 MG/20 ML VIAL As Ordered ONE (10:28)
[2022-06-20 10:55] VITALS: BP 146/67
== END 2022-06-20 11:04 | disposition home or self-care (01) ==
LOC: M OPP 09:18
PROVIDERS: ATTEND Surgery
DX: K44.9 Diaphragmatic hernia without obstruction or gangrene (principal); K30 Functional dyspepsia; R93.3 Abnormal findings on diagnostic imaging of other parts of digestive tract; Z87.891 Personal history of nicotine dependence; Z79.02 Long term (current) use of antithrombotics/antiplatelets; Z79.51 Long term (current) use of inhaled steroids; Z79.890 Hormone replacement therapy; Z79.899 Other long term (current) drug therapy

== ENCOUNTER → 2023-03-14 | Outpatient (CLI) | payer MEDICARE ==
[~2023-03-14] MED LIST changes: -NS 1,000 ML IV ONE; -OLME20TA2 PO; +OLME20TA50 PO
== END ==
LOC: M SOG 08:01
PROVIDERS: ATTEND Orthopaedic Surgery
DX: M25.561 Pain in right knee (principal); Z96.652 Presence of left artificial knee joint

== ENCOUNTER → 2023-03-25 | Outpatient (CLI) | payer MEDICARE | LOC: M PLAIMG 12:30 | PROVIDERS: ATTEND Orthopaedic Surgery | DX: M25.561 Pain in right knee (principal); Z96.651 Presence of right artificial knee joint ==

== ENCOUNTER → 2023-03-28 | Outpatient (CLI) | payer MEDICARE, MEDICAID ==
[2023-03-28 15:41] LABS: BASO # 0.1 10^3/uL (0.0-0.2); BASO % 0.7 % (0.0-1.0); EOS # 0.2 10^3/uL (0.0-0.5); EOS % 2.2 % (0.0-3.0); HEMATOCRIT 43.5 % (36.0-47.0); HEMOGLOBIN 14.2 g/dl (12.0-15.5); LYMPH # 1.5 10^3/uL (1.5-5.0); LYMPH % 15.6 % (24.0-44.0); MEAN CORPUSCULAR HEMOGLOBIN 29.8 pg (27.0-33.0); MEAN CORPUSCULAR HGB CONC 32.6 g/dl (32.0-36.5); MEAN CORPUSCULAR VOLUME 91.4 fl (80.0-96.0); MONO # 0.9 10^3/uL (0.0-0.8); MONO % 9.6 % (2.0-8.0); NEUTROPHILS # 6.9 10^3/uL (1.5-8.5); NEUTROPHILS % 71.5 % (36.0-66.0); PLATELET COUNT, AUTOMATED 337 10^3/uL (150-450); RED BLOOD COUNT 4.76 10^6/uL (4.00-5.40); WHITE BLOOD COUNT 9.7 10^3/uL (4.0-10.0)
[2023-03-28 15:57] LABS: INR 1.01
[2023-03-28 16:06] LABS: C REACTIVE PROTEIN QUANTITATIV < 0.40 MG/DL (<1.0)
[2023-03-28 16:07] LABS: ALBUMIN 4.1 G/DL (3.2-5.2); ALKALINE PHOSPHATASE 110 U/L (46-116); ALT/SGPT 42 U/L (7.0-40); AST/SGOT 33 U/L (<34); BILIRUBIN,TOTAL 0.6 MG/DL (0.3-1.2); BLOOD UREA NITROGEN 25 MG/DL (9-23); CALCIUM LEVEL 9.7 MG/DL (8.3-10.6); CARBON DIOXIDE LEVEL 26 MMOL/L (20-31); CHLORIDE LEVEL 107 MMOL/L (98-107); CREATININE FOR GFR 0.93 MG/DL (0.55-1.30); GLOMERULAR FILTRATION RATE > 60.0 (>32); GLUCOSE, FASTING 82 MG/DL (74-106); POTASSIUM SERUM 4.7 MMOL/L (3.5-5.1); SODIUM LEVEL 140 MMOL/L (136-145); TOTAL PROTEIN 7.3 G/DL (5.7-8.2)
[2023-03-28 16:09] LABS: TOTAL 25(OH) VITAMIN D 42.1 NG/ML (20.0-100.0)
[2023-03-28 16:18] LABS: HEMOGLOBIN A1c 6.1 % (4.0-6.0)
== END ==
LOC: M PLALAB 12:10
PROVIDERS: ATTEND Orthopaedic Surgery
DX: M17.11 Unilateral primary osteoarthritis, right knee (principal); Z79.899 Other long term (current) drug therapy; Z79.01 Long term (current) use of anticoagulants

== ENCOUNTER → 2023-04-08 | Outpatient (CLI) | payer MEDICARE, MEDICAID | LOC: M WHC 11:09 | PROVIDERS: ATTEND Orthopaedic Surgery | DX: M17.11 Unilateral primary osteoarthritis, right knee (principal); Z13.820 Encounter for screening for osteoporosis; M85.851 Other specified disorders of bone density and structure, right thigh; M85.852 Other specified disorders of bone density and structure, left thigh ==

== ENCOUNTER → 2023-04-14 | Outpatient (CLI) | payer MEDICARE, MEDICAID | LOC: M RAD 08:41 | PROVIDERS: ATTEND Orthopaedic Surgery | DX: M25.561 Pain in right knee (principal); M17.11 Unilateral primary osteoarthritis, right knee; Z96.651 Presence of right artificial knee joint ==

== ENCOUNTER 2023-04-28 06:00 | Inpatient (IN) | payer MEDICARE, MEDICAID ==
[~2023-04-28] VITALS: Ht 152.4 cm; Wt 70.5 kg
[2023-04-28] VITALS (7 sets, daily range): BP systolic 117–137; BP diastolic 64–76; TEMP 97.7–97.9; O2SAT 90–96
[~2023-04-28 06:00] MED LIST changes: +FAMO40TA3 PO; +LEXA1TAB PO; +NORV5TAB PO; +TRAZ-252 PO
[2023-04-28] MEDS ORDERED: fentaNYL 100 MCG/2 ML INJECTION As Ordered ONE (06:55)
[2023-04-28] MEDS ORDERED: HYDROmorphone HCL 2MG/ML 1ML VIAL As Ordered ONE (06:55)
[2023-04-28] MEDS ORDERED: ACETAMINOPHEN 1000MG 100ML IV BAG As Ordered ONE (07:02)
[2023-04-28] MEDS ORDERED: ONDANSETRON 4MG 2ML VIAL As Ordered ONE (07:02)
[2023-04-28] MEDS ORDERED: PHENYLephrine 500MCG 5ML (100MCG/ML) SYRINGE As Ordered ONE (07:03)
[2023-04-28] MEDS ORDERED: propofoL 200 MG/20 ML VIAL As Ordered ONE (07:03)
[2023-04-28] MEDS ORDERED: SUGAMMADEX SODIUM 500 MG/5 ML VIAL (BRIDION) As Ordered ONE (07:03)
[2023-04-28] MEDS ORDERED: LIDOCAINE 2% 100MG/5ML SDV (FOR ANES.) As Ordered ONE (07:03)
[2023-04-28] MEDS ORDERED: ROCURONIUM BROMIDE 50MG/5ML VIAL As Ordered ONE (07:06)
[2023-04-28] MEDS: LR 1,000 ML IV SCH ×3 (07:14→12:23)
[2023-04-28] MEDS: ceFAZolin SOD 2 GM in IV 1 EA IV ONE (07:43)
[2023-04-28] MEDS: TRANEXAMIC ACID 100 MG/ML 10ML VIAL As Ordered ONE (07:45)
[2023-04-28] MEDS ORDERED: ePHEDrine SULFATE 25 MG/5 ML(5MG/ML) SYRINGE As Ordered ONE (09:17)
[2023-04-28] MEDS ORDERED: GLYCOPYRROLATE INJ 0.2 MG/ML 2 ML VIAL As Ordered ONE (09:17)
[2023-04-28] MEDS: ROPIVA 100MG/KETOR 15MG/EPINEPHRINE 0.3MG IN NS 50ML SYRINGE PA ONE (10:10)
[2023-04-28] MEDS ORDERED: ONDANSETRON 4MG 2ML VIAL IV PRN ×2 (10:40→11:10)
[2023-04-28] MEDS ORDERED: SENNA 8.6 MG TAB (SENOKOT) PO PRN (10:40)
[2023-04-28] MEDS ORDERED: ALBUTEROL 90 MCG/ACT 8GM HFA INHALER INH PRN (10:40)
[2023-04-28] MEDS ORDERED: fentaNYL 100 MCG/2 ML INJECTION IV PRN (11:10)
[2023-04-28] MEDS ORDERED: HYDROMORPHONE HCL 0.5 MG/ 0.5 ML SYRINGE IV PRN (11:10)
[2023-04-28] MEDS: oxyCODONE 5MG TAB PO PRN ×2 (11:52→15:54)
[2023-04-28] MEDS ORDERED: HOME MED LIST COMPLETE! XX SCH (13:00)
[2023-04-28] MEDS: ceFAZolin SOD 2 GM in IV 1 EA IV SCH (15:54)
[2023-04-28] MEDS: ACETAMINOPHEN TAB 650MG DOSE (2X325MG) PO SCH (17:17)
[2023-04-28] MEDS: SYMBICORT 160/4.5MCG INHALER 6GM INH SCH (19:24)
[2023-04-28] MEDS: NAPROXEN 250 MG TAB PO SCH (21:39)
[2023-04-28] MEDS: DOCUSATE SODIUM 100MG CAPSULE PO SCH (21:39)
[2023-04-28] MEDS: ASPIRIN 81MG ENTERIC TABLET PO SCH (21:39)
[2023-04-29] MEDS: LEVOTHYROXINE 25MCG TABLET (0.025MG) PO SCH (05:46)
[2023-04-29 05:55] LABS: HEMATOCRIT 31.5 % (36.0-47.0); HEMOGLOBIN 10.4 g/dl (12.0-15.5); MEAN CORPUSCULAR HEMOGLOBIN 29.8 pg (27.0-33.0); MEAN CORPUSCULAR VOLUME 90.3 fl (80.0-96.0); PLATELET COUNT, AUTOMATED 226 10^3/uL (150-450); RED BLOOD COUNT 3.49 10^6/uL (4.00-5.40); WHITE BLOOD COUNT 11.7 10^3/uL (4.0-10.0)
[2023-04-29 06:00] VITALS: BP 150/69; TEMP 97.9; O2SAT 96
[2023-04-29 06:27] LABS: ALKALINE PHOSPHATASE 87 U/L (46-116); ALT/SGPT 31 U/L (7.0-40); AST/SGOT 37 U/L (<34); BILIRUBIN,TOTAL 0.3 MG/DL (0.3-1.2); BLOOD UREA NITROGEN 23 MG/DL (9-23); CALCIUM LEVEL 8.9 MG/DL (8.3-10.6); CARBON DIOXIDE LEVEL 30 MMOL/L (20-31); CHLORIDE LEVEL 105 MMOL/L (98-107); CREATININE FOR GFR 0.85 MG/DL (0.55-1.30); GLOMERULAR FILTRATION RATE > 60.0 (>32); GLUCOSE, FASTING 111 MG/DL (74-106); PHOSPHORUS LEVEL 4.2 MG/DL (2.4-5.1); SODIUM LEVEL 139 MMOL/L (136-145); TOTAL PROTEIN 5.4 G/DL (5.7-8.2)
[2023-04-29] MEDS: FERROUS SULFATE 325MG TAB PO SCH (07:28)
[2023-04-29] MEDS: VITAMIN D 1,000 INTERNATIONAL UNITS TABLET PO SCH (07:28)
[2023-04-29] MEDS: ASCORBIC ACID 500 MG TAB PO SCH (07:28)
[2023-04-29] MEDS: PANTOPRAZOLE 40MG TAB (PROTONIX) PO SCH (07:28)
[2023-04-29] MEDS: ATORVASTATIN 20 MG TAB PO SCH (07:29)
[2023-04-29] MEDS ORDERED: NAPR-849 PO (09:20)
[2023-04-29] MEDS ORDERED: CEFA500C2 PO (09:20)
[2023-04-29] MEDS ORDERED: OXYC-517 PO (09:20)
[2023-04-29] MEDS ORDERED: ASPI81TAEC PO (09:20)
[2023-04-29] MEDS: oxyCODONE 5MG TAB PO PRN (12:18)
== END 2023-04-29 12:45 | disposition home health service (06) | DRG 470 ==
LOC: M OR 06:00 → EDSTATUS 07:30 → M MS5PR 12:00
PROVIDERS: ADMIT Orthopaedic Surgery; ATTEND Orthopaedic Surgery
PROC: 0QP Lower Bones, Removal (ICD-10-PCS; 2023-04-28)
PROC: 8E0Y0CZ Robotic Assisted Procedure of Lower Extremity, Open Approach (ICD-10-PCS; 2023-04-28)
PROC: 0SRC0JZ Replacement of Right Knee Joint with Synthetic Substitute, Open Approach (ICD-10-PCS; principal; 2023-04-28 07:30)
DX: M17.11 Unilateral primary osteoarthritis, right knee (principal); K86.2 Cyst of pancreas; Z79.899 Other long term (current) drug therapy; Z79.82 Long term (current) use of aspirin; I13.10 Hypertensive heart and chronic kidney disease without heart failure, with stage 1 through stage 4 chronic kidney disease, or unspecified chronic kidney disease; N18.30 Chronic kidney disease, stage 3 unspecified; J44.9 Chronic obstructive pulmonary disease, unspecified; E04.1 Nontoxic single thyroid nodule; E78.00 Pure hypercholesterolemia, unspecified; K21.9 Gastro-esophageal reflux disease without esophagitis; Z87.891 Personal history of nicotine dependence; I71.20 Thoracic aortic aneurysm, without rupture, unspecified; Z89.421 Acquired absence of other right toe(s); E03.9 Hypothyroidism, unspecified; F41.1 Generalized anxiety disorder; G47.00 Insomnia, unspecified

== ENCOUNTER → 2023-05-12 | Outpatient (CLI) | payer MEDICARE, MEDICAID ==
[~2023-05-12] MED LIST changes: +ASPI81TAEC PO; +CEFA500C2 PO; +NAPR-849 PO
== END ==
LOC: M SOG 07:49
PROVIDERS: ATTEND Orthopaedic Surgery
DX: Z47.1 Aftercare following joint replacement surgery (principal); Z96.651 Presence of right artificial knee joint

== ENCOUNTER → 2023-07-17 | Outpatient (CLI) | payer MEDICARE, MEDICAID | LOC: M SOG 15:07 | PROVIDERS: ATTEND Orthopaedic Surgery | DX: Z47.1 Aftercare following joint replacement surgery (principal); Z96.651 Presence of right artificial knee joint ==

== ENCOUNTER → 2023-10-10 | Outpatient (CLI) | payer MEDICARE, MEDICAID | LOC: M SOG 08:10 | PROVIDERS: ATTEND Orthopaedic Surgery | DX: Z96.651 Presence of right artificial knee joint (principal) ==

== ENCOUNTER → 2024-04-12 | Outpatient (CLI) | payer MEDICARE, MEDICAID | LOC: M SOG 08:09 | PROVIDERS: ATTEND Orthopaedic Surgery | DX: Z47.1 Aftercare following joint replacement surgery (principal); Z96.651 Presence of right artificial knee joint ==

== ENCOUNTER → 2024-04-26 | Outpatient (REF) | payer MEDICARE, MEDICAID ==
[2024-04-26 18:37] LABS: PERCENT SATURATION 8.8 % (13.2-45.0)
== END ==
LOC: M LAB REF 17:31
PROVIDERS: ATTEND Internal Medicine
DX: D50.9 Iron deficiency anemia, unspecified (principal)

== ENCOUNTER → 2024-05-24 | Outpatient (CLI) | payer MEDICARE, MEDICAID | LOC: M WUC 12:41 | PROVIDERS: ATTEND Physician Assistant Medical | DX: M79.601 Pain in right arm (principal) ==

== ENCOUNTER → 2024-06-10 | Outpatient (REF) | payer MEDICARE, MEDICAID ==
[2024-06-10 15:07] LABS: PERCENT SATURATION 19.1 % (13.2-45.0)
[2024-06-10 15:09] LABS: FERRITIN 41.6 NG/ML (7.3-270.7)
== END ==
LOC: M LAB REF 14:39
PROVIDERS: ATTEND Internal Medicine
DX: D50.9 Iron deficiency anemia, unspecified (principal)

== ENCOUNTER → 2024-09-15 | Outpatient (CLI) | payer MEDICARE, MEDICAID ==
[~2024-09-15] MED LIST changes: +BUDE10.7 IH; +FERR325T3 PO; +HYDR12.510 PO; -HYDR12CA PO; +PRED5TA
[2024-09-15 11:30] LABS: BASO # 0.1 10^3/uL (0.0-0.2); BASO % 1.2 % (0.0-1.0); EOS # 0.3 10^3/uL (0.0-0.5); EOS % 4.5 % (0.0-3.0); LYMPH # 1.1 10^3/uL (1.5-5.0); LYMPH % 17.7 % (24.0-44.0); MONO # 0.7 10^3/uL (0.0-0.8); MONO % 12.0 % (2.0-8.0); NEUTROPHILS # 3.8 10^3/uL (1.5-8.5); NEUTROPHILS % 63.8 % (36.0-66.0); PLATELET COUNT, AUTOMATED 289 10^3/uL (150-450)
[2024-09-15 11:57] LABS: ALT/SGPT 57.0 U/L (7.0-40); AST/SGOT 57.0 U/L (<34); CALCIUM LEVEL 9.7 MG/DL (8.3-10.6); CARBON DIOXIDE LEVEL 29.0 MMOL/L (20-31); CHLORIDE LEVEL 102.0 MMOL/L (98-107); CREATININE FOR GFR 0.98 MG/DL (0.55-1.30); GLOMERULAR FILTRATION RATE 57.6 (>32); POTASSIUM SERUM 4.6 MMOL/L (3.5-5.1); SODIUM LEVEL 140.0 MMOL/L (136-145)
== END ==
LOC: M RAD 09:49
PROVIDERS: ATTEND Podiatrist
DX: Z01.818 Encounter for other preprocedural examination (principal)

== ENCOUNTER 2024-09-24 09:41 | Day surgery (SDC) | payer MEDICARE, MEDICAID ==
[~2024-09-24] VITALS: Ht 152.4 cm; Wt 75.6 kg
[2024-09-24] MEDS ORDERED: LR 1,000 ML IV SCH (10:35)
[2024-09-24] MEDS ORDERED: ONDANSETRON 4MG 2ML VIAL As Ordered ONE (11:27)
[2024-09-24] MEDS ORDERED: dexAMETHasone 4 MG/ML 1 ML VIAL As Ordered ONE (11:27)
[2024-09-24] MEDS ORDERED: KETOROLAC 30 MG/ML 1 ML VIAL As Ordered ONE (11:27)
[2024-09-24] MEDS ORDERED: LIDOCAINE 2% 100 MG/5 ML SDV (FOR ANES.) As Ordered ONE (11:27)
[2024-09-24] MEDS: ceFAZolin SOD 2 GM IV ONCE IV ONE (13:04)
[2024-09-24] MEDS ORDERED: ACETAMINOPHEN 1000MG/100ML IV BAG As Ordered ONE (13:08)
[2024-09-24] MEDS: LIDOCAINE 2% MDV 20 ML VIAL As Ordered ONE (13:12)
[2024-09-24 14:30] VITALS: BP 171/77; TEMP 97.5; O2SAT 94
== END 2024-09-24 16:36 | disposition home or self-care (01) ==
LOC: M SDC 09:41
PROVIDERS: ATTEND Podiatrist
DX: M20.42 Other hammer toe(s) (acquired), left foot (principal); I10 Essential (primary) hypertension; J44.9 Chronic obstructive pulmonary disease, unspecified; E03.9 Hypothyroidism, unspecified; E78.00 Pure hypercholesterolemia, unspecified; Z79.82 Long term (current) use of aspirin; Z79.899 Other long term (current) drug therapy; Z79.890 Hormone replacement therapy; Z79.51 Long term (current) use of inhaled steroids; K21.9 Gastro-esophageal reflux disease without esophagitis; F32.A Depression, unspecified; F41.9 Anxiety disorder, unspecified; Z87.891 Personal history of nicotine dependence; Z90.710 Acquired absence of both cervix and uterus
CPT/HCPCS: 28820; 73630; 76000; 88305; 88311; J0131; J0665; J0690; J1100; J1885; J2405; J3010

== ENCOUNTER → 2024-12-30 | Outpatient (REF) | payer MEDICARE, MEDICAID ==
[2024-12-30 15:29] LABS: IRON (FE) 203.0 UG/DL (50-170); PERCENT SATURATION 62.3 % (13.2-45.0)
== END ==
LOC: M LAB REF 14:38
PROVIDERS: ATTEND Internal Medicine
DX: D50.9 Iron deficiency anemia, unspecified (principal)